=== PATIENT | female | born 1990 | race Two or more races ===

== ENCOUNTER → 2016-11-28 | Outpatient (CLI) | payer OTHER ==
[~2016-11-28] MED LIST: PRENATAL MULITV1 TAB PO
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
== END | disposition home or self-care (01) ==
LOC: CRAD 19:26
DX: M54.2 Cervicalgia (principal); M54.5 Low back pain
CPT/HCPCS: 72040; 72100